=== PATIENT | female | born 1995 | race Caucasian/White ===

== ENCOUNTER 2016-10-10 17:26 | Emergency (ER) | payer OTHER ==
[2016-10-10] MEDS ORDERED: DIPHENOXYLATE HCL/ATROPINE 1 EACH TABLET PO ONE (17:37)
[2016-10-10] MEDS ORDERED: ONDANSETRON HCL/PF 4 MG/ 2ML VIAL IVP ONE (17:37)
[2016-10-10] MEDS ORDERED: 0.9 % SODIUM CHLORIDE 1,000 ML IV ONE (17:58)
[2016-10-10] MEDS ORDERED: 0.9 % SODIUM CHLORIDE 1,000 ML IV SCH (18:00)
--- NOTE | 2016-10-10 19:10 | ED Physician Documentation ---
GI Bleed - HISTORIAN Historian: patient - HPI Stated Complaint: n/v/d Chief Complaint: Nausea,Vomiting,Diarrhea Onset: hours (10) Timing: sudden onset Severity: moderate Further Comments: no - Associated Symptoms Description of Stools: diarrhea Abdominal Pain: cramping Emesis Description: clear Other Related Symptoms: nausea, vomiting - ROS CONST: no problems SKIN/LYMPH: denies: leg swelling, rash, swollen glands, ankle swelling CVS/RESP: none GI/: denies: problems urinating EYES/ENT: denies: problems with vision, sore throat, nose bleed MS: none NEURO/PSYCH: denies: headache, lost feeling, confusion, anxiety, depression, loss of power - PAST HX Past History: other (cholerlithiasis) Other History: other Surgeries/Procedures: cholecystectomy Immunizations: referred to PCP Allergies/Adverse Reactions: Allergies Allergy/AdvReac Type Severity Reaction Status Date / Time No Known Allergies Allergy Verified 10/10/16 17:37 Home Medications: Ambulatory Orders Medication Instructions Recorded NK [NK] 09/04/16 - SOCIAL HX Smoking History: cigarettes Alcohol Use: none Drug Use: none - FAMILY HX Family History: none - VITAL SIGNS Vital Signs: Vital Signs Temp Pulse Resp BP Pulse Ox 98.1 F 77 14 118/71 96 10/10/16 17:26 10/10/16 17:26 10/10/16 17:26 10/10/16 17:26 10/10/16 17:26 - REVIEWED ASSESSMENTS Nursing Assessment Reviewed: Yes Vitals Reviewed: Yes Progress - Results/Orders Results/Orders: no testing ordered - Progress Progress: pt. given 1 liter NS, 8 mg Zofran ivp and 1 lomotil p.o. in er, all symptoms resolved. Critical Care Note - Critical Care Note Total Time (mins): 0 ED Results Lab/Radiology - Lab Results Lab Results: none ordered - Radiology Radiology Impressions: none ordered - Orders Orders: ED Orders Category Date Time Status Place Saline Lock/IV Now Care 10/10/16 17:37 Active 0.9 % Sodium Chloride [Normal Saline] 1,000 ml Med 10/10/16 18:00 Ordered IV .Q1H Diphenoxylate HCl/Atropine [Lomotil] Med 10/10/16 17:37 Discontinued 1 each PO NOW ONE Ondansetron HCl/Pf [Zofran 4 mg/2 ml] Med 10/10/16 17:37 Discontinued 8 mg IVP NOW ONE Abdominal Pain Physical Exam - Physical Exam General Appearance: alert, mild distress EENT: eye inspection normal, ENT inspection normal, pharynx normal, no signs of dehydration, VERNON, no nystagmus, TM's nml NECK: normal inspection, thyroid normal, supple RESPIRATORY: no resp distress, chest non-tender, breath sounds normal CVS: reg rate & rhythm, heart sounds normal, equal pulses, no murmur, no gallop , PMI nml, no JVD, no friction rub ABDOMEN: soft, no organomegaly, normal bowel sounds, no abdominal bruit, no distension, tenderness (lrft lower quadrant) BACK: normal inspection, no CVA tenderness SKIN: warm/dry, normal color EXTREMITIES: non-tender, normal range of motion, no evidence of injury, no edema NEURO: oriented X3, CN's nml as tested, motor nml, sensation nml, mood/affect nml, cognition normal Vital Signs: Vital Signs Temp Pulse Resp BP Pulse Ox 98.1 F 77 14 118/71 96 10/10/16 17:26 10/10/16 17:26 10/10/16 17:26 10/10/16 17:26 10/10/16 17:26 Discharge Clincal Impression: Gastroenteritis Home Medications: Ambulatory Orders NK [NK] 09/04/16 Comments: discharged with scripts for zofran and lomotil #10 each Condition: Stable Disposition: 01 HOME, SELF-CARE Decision to Admit: NO Decision Time: 07:00
[2016-10-10 20:33] VITALS: BP 121/70
== END 2016-10-10 19:09 | disposition home or self-care (01) ==
LOC: ED 17:26
DX: K52.9 Noninfective gastroenteritis and colitis, unspecified (principal)
CPT/HCPCS: J2405; J7030; 96361; 96374; 99283; S1016

== ENCOUNTER 2018-02-18 15:20 | Emergency (ER) | payer OTHER ==
[2018-02-18 15:45] VITALS: BP 143/78
--- NOTE | 2018-02-18 15:59 | ED Physician Documentation ---
General Adult - HISTORIAN Historian: patient - HPI Stated Complaint: UTI Chief Complaint: Abdominal Pain Additional Information: Had vaginal and clitoral discomfort two weeks. Since menstrual period ended a few days ago, she has bladder pain that radiates to her back. Feels like pain with bacterial vaginosis a year ago, but in the wrong location. Has been taking Azo in case she has a bladder infection. No dysuria or frequency or fever. No other associated signs or modifying factors. Denies concern about STD. - ROS CONST: no problems - PAST HX Past History: other (bacterial vaginosis) Allergies/Adverse Reactions: Allergies Allergy/AdvReac Type Severity Reaction Status Date / Time No Known Allergies Allergy Verified 02/18/18 15:24 Home Medications: Ambulatory Orders Medication Instructions Recorded Metronidazole 500 mg PO Q12H #14 tablet 02/18/18 - SOCIAL HX Smoking History: non-smoker - FAMILY HX Family History: No - VITAL SIGNS Vital Signs: Vital Signs Temp Pulse Resp BP Pulse Ox 96.8 F L 81 16 143/78 98 02/18/18 15:22 02/18/18 15:22 02/18/18 15:22 02/18/18 15:22 02/18/18 15:22 - REVIEWED ASSESSMENTS Nursing Assessment Reviewed: Yes Vitals Reviewed: Yes ED Results Lab/Radiology - Orders Orders: ED Orders Category Date Time Status UA [URINALYSIS] Routine Lab 02/18/18 Ordered General Adult Physical Exam - PHYSICAL EXAM GENERAL APPEARANCE: mild distress EENT: eye inspection normal, ENT inspection normal NECK: normal inspection RESPIRATORY: no resp distress ABDOMEN: soft, non-tender, other (Pelvic: external exam normal. No unusual discharge or odor. No adnexal or cervical motion tenderness. ) BACK: normal inspection SKIN: warm/dry, normal color EXTREMITIES: normal range of motion (gait and stance), no evidence of injury NEURO: CN's nml as tested, motor nml, sensation nml, cognition normal Discharge Clincal Impression: Pelvic pain Prescriptions: Metronidazole 500 mg PO Q12H #14 tablet Referrals: Primary Doctor,No [Primary Care Provider] - 2 Days Additional Instructions: Your prescription is at [facility]. Condition: Good Disposition: 01 HOME, SELF-CARE Decision to Admit: NO Decision Time: 16:00
== END 2018-02-18 16:06 | disposition home or self-care (01) ==
LOC: ED 15:20
DX: R10.2 Pelvic and perineal pain (principal)
CPT/HCPCS: 87210; 87491; 87591; 87798

== ENCOUNTER 2018-06-26 08:22 | Emergency (ER) | payer OTHER ==
[2018-06-26] MEDS ORDERED: ONDANSETRON HCL/PF 4 MG/ 2ML VIAL IVP ONE ×2 (08:29→09:21)
[2018-06-26] MEDS: 0.9 % SODIUM CHLORIDE 1,000 ML IV ONE ×2 (08:46→09:25)
--- NOTE | 2018-06-26 08:54 | ED Physician Documentation ---
General Adult - HISTORIAN Historian: patient - HPI Stated Complaint: N/V Chief Complaint: General Adult Additional Information: Woke at 0600 with nausea and has vomited 12x since. Abdominal muscle soreness, DAWSON, nausea continues. Has urinated 2x since she woke today. Kids sick with respiratory symptoms. [place] fine when she went to bed last night. No fever or hematemesis. LNMP about 2 weeks ago. No other modifying factors or associated events. - ROS CONST: denies: fever GI/: denies: problems urinating - PAST HX Past History: none Surgeries/Procedures: cholecystectomy Allergies/Adverse Reactions: Allergies Allergy/AdvReac Type Severity Reaction Status Date / Time No Known Allergies Allergy Verified 02/18/18 15:24 Home Medications: Ambulatory Orders Medication Instructions Recorded Metronidazole 500 mg PO Q12H #14 tablet 02/18/18 Ondansetron [Zofran Odt] 4 mg PO Q6H PRN #10 tab.rapdis 06/26/18 - SOCIAL HX Smoking History: non-smoker - FAMILY HX Family History: No - VITAL SIGNS Vital Signs: Vital Signs Temp Pulse Resp BP Pulse Ox 98.4 F 80 16 115/78 98 06/26/18 08:25 06/26/18 08:25 06/26/18 08:25 06/26/18 08:25 06/26/18 08:25 - REVIEWED ASSESSMENTS Nursing Assessment Reviewed: Yes Vitals Reviewed: Yes Progress - Progress Progress: 1000, nausea gone. bitemporal aching DAWSON remains. Given tylenol. ED Results Lab/Radiology - Orders Orders: ED Orders Category Date Time Status Place IV Lock 1T Care 06/26/18 08:29 Active CBC REF Routine Lab 06/26/18 Received CMP Routine Lab 06/26/18 Received 0.9 % Sodium Chloride [Normal Saline] 1,000 ml Med 06/26/18 08:29 Active IV Q1H Ondansetron HCl/Pf [Zofran 4 mg/2 ml] Med 06/26/18 08:29 Discontinued 4 mg IVP NOW ONE General Adult Physical Exam - PHYSICAL EXAM GENERAL APPEARANCE: mild distress EENT: eye inspection normal, ENT inspection normal, pharynx normal NECK: normal inspection, supple RESPIRATORY: breath sounds normal CVS: reg rate & rhythm, heart sounds normal, no murmur ABDOMEN: soft, normal bowel sounds, non-tender BACK: normal inspection, no CVA tenderness SKIN: warm/dry, normal color EXTREMITIES: non-tender, normal range of motion (gait and stance) NEURO: CN's nml as tested, motor nml, sensation nml, cognition normal Discharge Clincal Impression: Nausea & vomiting Qualifiers: Vomiting type: unspecified Vomiting Intractability: non-intractable Qualified Code(s): R11.2 - Nausea with vomiting, unspecified Prescriptions: Ondansetron [Zofran Odt] 4 mg PO Q6H PRN #10 tab.rapdis PRN Reason: Nausea / Vomiting Referrals: Primary Doctor,No [Primary Care Provider] - 2 Days Condition: Good Disposition: 01 HOME, SELF-CARE Decision to Admit: NO Decision Time: 10:00
[2018-06-26 09:13] LABS: eGFR (Non-African) > 60
[2018-06-26] MEDS ORDERED: KETOROLAC TROMETHAMINE 30 MG/1ML VIAL IVP ONE (09:21)
[2018-06-26] MEDS ORDERED: ACETAMINOPHEN 500 MG TABLET PO ONE (10:00)
[2018-06-26 10:23] VITALS: BP 118/68
[2018-06-26 10:41] LABS: BASO % 0.2 % (0.0-1.5); EOS % 0.1 % (0.0-6.8); LYMPH ABS # 0.56 thou/uL (0.60-4.00); MCV 88.4 fL (80.0-100.0); MONOCYTE % 5.3 % (0.0-11.0); MONOCYTE ABS # 0.48 thou/uL (0.00-0.90); PLATELET COUNT 133 thou/uL (130-400)
[2018-06-27 07:37] LABS: APPEARANCE,URINE CLEAR (CLEAR); COLOR,URINE YELLOW (YELLOW); OCCULT BLOOD,URINE NEGATIVE (NEGATIVE); PH URINE 5.5 (5.0 - 8.0); URINE HCG NEGATIVE (NEGATIVE); UROBILINOGEN URINE 0.2 Eu (0.2-1.0)
== END 2018-06-26 10:08 | disposition home or self-care (01) ==
LOC: ED 08:22
DX: R11.2 Nausea with vomiting, unspecified (principal)
CPT/HCPCS: 80053; 81002; 81025; 85025; J1885; J2405; J7030; 96365; 96366; 96375; 96376; S1016